=== PATIENT | female | born 1945 | race Caucasian/White ===

== ENCOUNTER 2017-05-21 07:08 | Day surgery (SDC) | payer MEDICARE, OTHER ==
--- NOTE | ~2017-05-21 | EGD ---
EGD REPORT [facility] [address] [address] NAME: KIMBER WARD : [birth year] STATUS : [facility] PAT#: [id number] AGE: 72 ADM/REG DATE : 05/21/17 MR#: [id number] REPORT SERV DATE: 05/21/17 DICTATED BY: VASQUEZ BRODERICK DATE: 05/21/17 REPORT STATUS : Draft TRANSCRIBED BY: [employer] DATE: 05/21/17 [facility] Patient Name: Kimber Ward Date of : 1945 Attending MD: VASQUEZ BRODERICK MD Procedure Date No Time: 05/21/2017 Procedure: Upper GI endoscopy Indications: Dysphagia, Heartburn, Suspected esophageal reflux Referring MD: SRI HANSON Medicines: as per anesthesia Complications: No immediate complications. Procedure: After obtaining informed consent, the endoscope was passed under direct vision. Throughout the procedure, the patient's blood pressure, pulse, and oxygen saturations were monitored continuously. The GIF H190 [id number] was introduced through the mouth, and advanced to the third part of duodenum. The upper GI endoscopy was accomplished without difficulty. The patient tolerated the procedure. Findings: The examined esophagus was normal. The scope was withdrawn. Dilation was performed with a Toribio dilator with no resistance at 44 Fr. A medium-sized hiatus hernia was present. Multiple sessile polyps were found in the gastric body. Biopsies were taken with a cold forceps for histology. The examined duodenum was normal. Impression: - Normal esophagus. Dilated. - Hiatus hernia. - Multiple gastric polyps. Biopsied. - Normal examined duodenum. Recommendation: - Await pathology results. - Follow an antireflux regimen. - Continue present medications. Procedure Code(s): --- Professional --- 36887, Esophagogastroduodenoscopy, flexible, transoral; with biopsy, single or multiple 63552, Dilation of esophagus, by unguided sound or bougie, single or multiple passes Diagnosis Code(s): --- Professional --- K44.9, Diaphragmatic hernia without obstruction or EGD REPORT [facility] [address] [place]. [address] NAME: KIMBER WARD ANTONIO : [birth year] STATUS : [facility] PAT#: [id number] AGE: 72 ADM/REG DATE : 05/21/17 MR#: [id number] REPORT SERV DATE: 05/21/17 DICTATED BY: VASQUEZ BRODERICK. DATE: 05/21/17 REPORT STATUS : Draft TRANSCRIBED BY: [facility] DATE: 05/21/17 gangrene K31.7, Polyp of stomach and duodenum R13.10, Dysphagia, unspecified R12, Heartburn CPT copyright 2013 [employer]. All rights reserved. The codes documented in this report are preliminary and upon refractory tile helper review may be revised to meet current compliance requirements. VASQUEZ BRODERICK MD 05/21/2017 9:56 AM This report has been signed electronically. Number of Addenda: 0 Note Initiated On: 05/21/2017 9:33 AM Scope Withdrawal Time 0 hours 0 minutes 0 seconds [address] [place] [address]
--- NOTE | ~2017-05-21 | EGD ---
EGD REPORT [facility] [address] [id number] NAME: KIMBER WARD : [birth year] STATUS : [facility] PAT#: [id number] AGE: 72 ADM/REG DATE : 05/21/17 MR#: [id number] REPORT SERV DATE: 05/21/17 DICTATED BY: VASQUEZ BRODERICK DATE: 05/21/17 REPORT STATUS : Draft TRANSCRIBED BY: [employer] DATE: 05/21/17 [facility] Center Patient Name: Kimber Ward Date of : 1945 Attending MD: VASQUEZ BRODERICK MD Procedure Date No Time: 05/21/2017 Procedure: Colonoscopy Indications: High risk colon cancer surveillance: Personal history of colonic polyps Referring MD: SRI HANSON Medicines: as per anesthesia Complications: No immediate complications. Procedure: Pre-Anesthesia Assessment: - ASA Grade Assessment: II - A patient with mild systemic disease. After I obtained informed consent, the scope was passed under direct vision. Throughout the procedure, the patient's blood pressure, pulse, and oxygen saturations were monitored continuously. The PCF [id number] was introduced through the anus and advanced to the cecum, identified by appendiceal orifice and ileocecal valve. The colonoscopy was somewhat difficult due to multiple diverticula in the colon, restricted mobility of the colon, significant looping and a tortuous colon. The patient tolerated the procedure. The quality of the bowel preparation was adequate to identify polyps. Findings: The perianal and digital rectal examinations were normal. Multiple small and large-mouthed diverticula were found in the sigmoid colon, in the descending colon, in the transverse colon and in the ascending colon. Internal hemorrhoids were found during endoscopy and were mild. Impression: - Diverticulosis in the sigmoid colon, in the descending colon, in the transverse colon and in the ascending colon. - Internal hemorrhoids. Recommendation: - Repeat colonoscopy in 5 years for surveillance. Procedure Code(s): --- Professional --- 05126, Colonoscopy, flexible, proximal to splenic flexure; diagnostic, with or without collection of specimen(s) by brushing or washing, with or without EGD REPORT [facility] [address] [address] NAME: KIMBER WARD ANTONIO : [birth year] STATUS : [facility] PAT#: [id number] AGE: 72 ADM/REG DATE : 05/21/17 MR#: [id number] REPORT SERV DATE: 05/21/17 DICTATED BY: VASQUEZ BRODERICK DATE: 05/21/17 REPORT STATUS : Draft TRANSCRIBED BY: [employer] DATE: 05/21/17 colon decompression (separate procedure) Diagnosis Code(s): --- Professional --- K64.8, Other hemorrhoids K57.30, Diverticulosis of large intestine without perforation or abscess without bleeding Z86.010, Personal history of colonic polyps CPT copyright 2013 [employer]. All rights reserved. The codes documented in this report are preliminary and upon avionics systems integration specialist review may be revised to meet current compliance requirements. VASQUEZ BRODERICK MD 05/21/2017 10:22 AM This report has been signed electronically. Number of Addenda: 0 Note Initiated On: 05/21/2017 9:32 AM Scope Withdrawal Time 0 hours 7 minutes 33 seconds [address] [facility] [address] [id number]
[~2017-05-21 07:08] MED LIST: ACET500CAP PO; ADVIL PO; MAX25 PO; METHOTREXATE; NEXIUM40 PO; PRILO PO; REMICADE IV
== END 2017-05-21 23:59 | disposition home health service (06) ==
LOC: DMU 07:08
PROVIDERS: Internal Medicine Gastroenterology
PROC: 0D758ZZ Dilation of Esophagus, Via Natural or Artificial Opening Endoscopic (ICD-10-PCS; principal; 2017-05-21 09:00)
PROC: 0DB68ZX Excision of Stomach, Via Natural or Artificial Opening Endoscopic, Diagnostic (ICD-10-PCS; 2017-05-21 09:00)
PROC: 0DJD8ZZ Inspection of Lower Intestinal Tract, Via Natural or Artificial Opening Endoscopic (ICD-10-PCS; 2017-05-21 09:00)
DX: Z12.11 Encounter for screening for malignant neoplasm of colon (principal); K31.7 Polyp of stomach and duodenum; K64.8 Other hemorrhoids; K44.9 Diaphragmatic hernia without obstruction or gangrene; K57.30 Diverticulosis of large intestine without perforation or abscess without bleeding; M06.9 Rheumatoid arthritis, unspecified; K21.9 Gastro-esophageal reflux disease without esophagitis; F32.9 Major depressive disorder, single episode, unspecified; Z86.010 Personal history of colon polyps; Z88.5 Allergy status to narcotic agent; Z79.899 Other long term (current) drug therapy; Z90.49 Acquired absence of other specified parts of digestive tract; Z98.51 Tubal ligation status; Z87.442 Personal history of urinary calculi; Z98.890 Other specified postprocedural states
CPT/HCPCS: 43239; 43248; G0105; 88305